=== PATIENT | female | born 1935 | race Caucasian/White ===

== ENCOUNTER → 2016-07-13 | Outpatient (CLI) | payer OTHER | LOC: FIMAGING 13:11 | PROVIDERS: ATTEND Family Medicine | DX: Z13.820 Encounter for screening for osteoporosis (principal); M81.0 Age-related osteoporosis without current pathological fracture; Z78.0 Asymptomatic menopausal state; Z79.890 Hormone replacement therapy ==

== ENCOUNTER → 2017-01-13 | Outpatient (CLI) | payer OTHER | LOC: FIMAGING 13:38 | PROVIDERS: ATTEND Family Medicine | DX: Z12.31 Encounter for screening mammogram for malignant neoplasm of breast (principal) | CPT/HCPCS: G0202 ==

== ENCOUNTER → 2017-08-29 | Outpatient (CLI) | payer OTHER | LOC: FIMAGING 16:27 | PROVIDERS: ATTEND Family Medicine | DX: R05 Cough (principal); R53.83 Other fatigue; R79.81 Abnormal blood-gas level ==

== ENCOUNTER 2017-09-26 18:35 | Observation (INO) | payer OTHER ==
--- NOTE | 2017-09-26 19:14 | EDPHY ---
H & P Time Seen by Provider: 09/26/17 18:51 HPI/ROS: CHIEF COMPLAINT: Fever cough, lethargy HISTORY OF PRESENT ILLNESS: The patient is a 81-year-old female who presents to the emergency department with lethargy and fever. The patient felt well this morning. When she went to her doctor's office at 2:00 p.m. She developed rigors. She also noted that she had a fever. She reports that she has had a cough for the past few days. Patient has had no nausea or vomiting. No abdominal pain. No leg pain or swelling. No dysuria frequency. The patient reports that she had a cough prior to going on vacation on August 29. She took azithromycin in completed the entire course. This is not change or cough. REVIEW OF SYSTEMS: My complete review of systems is negative except as mentioned in the HPI. Past Medical/Surgical History: Includes hypertension, diabetes Smoking Status: Former smoker Physical Exam: Vitals noted GENERAL: Well-appearing, in no acute distress, alert. HEENT: Eyes normal to inspection, normal pharynx, no signs of dehydration. NECK: No thyromegaly, no lymphadenopathy, supple. RESPIRATORY: Clear to auscultation bilaterally, no rales, rhonchi or wheezing. CVS: Regular rate and rhythm, no rubs, murmurs, or gallops. ABDOMEN: Soft, nontender, nondistended, no organomegaly. BACK: Normal to inspection, no CVA tenderness. SKIN: Normal color, no rash, warm, dry. No pallor. EXTREMITIES: No pedal edema, no calf tenderness, no Homans sign or cords, no joint swelling. NEURO/PSYCH: Alert and oriented x3, normal mood and affect, normal motor sensory exam. No obvious cranial nerve deficit. Constitutional: Initial Vital Signs Temperature (C) 37.9 C 09/26/17 18:44 Heart Rate 112 H 09/26/17 18:44 Respiratory Rate 20 09/26/17 18:44 Blood Pressure 120/70 09/26/17 18:44 O2 Sat (%) 84 L 09/26/17 18:44 O2 Delivery Mode Nasal Cannula O2 (L/minute) 3 Allergies/Adverse Reactions: No Known Allergies Allergy (Unverified 03/24/14 15:44) Home Medications: Medication Instructions Recorded Otc Supplements 10/26/09 GLIPIZIDE 03/24/14 Raloxifene HCl 03/24/14 Atorvastatin Calcium 09/26/17 Lisinopril 09/26/17 Prozac 10 MG (*) 09/26/17 Medical Decision Making - Diagnostics Imaging Results: Imaging Impressions Chest X-Ray 09/26/17 19:13 Impression: Negative chest. ED Course/Re-evaluation: In the emergency department I discussed possible etiologies with the patient and family. I answered all her questions. IV was placed. Laboratory studies, EKG, chest x-ray and urine studies were ordered. I reviewed the patient's laboratory studies. White count was elevated 18,000. Lactate was 1.5. Chemistry panel was notable for slightly low sodium 133. Her urine showed 5-10 white cells. Chest x-ray: No acute disease noted. Please refer the dictated report by the radiologist. I reviewed the films personally. I discussed the results with the patient. I answered all her questions. Feel the patient should be further worked up. I discussed this with Dr. Bingham. She was given Rocephin 1 g IV. Plan. Differential Diagnosis: My differential includes but is not limited to bacteremia, sepsis, urinary tract infection, pneumonia, electrolyte abnormality, sugar abnormality - Data Points Laboratory Results: Laboratory Results 09/26/17 19:35 09/26/17 19:35 09/26/17 09/26/17 09/26/17 19:42 19:40 19:35 WBC RBC Hgb Hct MCV MCH MCHC RDW Plt Count MPV Neut % (Auto) Lymph % (Auto) [place] % (Auto) Eos % (Auto) Baso % (Auto) Nucleat RBC Rel Count Absolute Neuts (auto) Absolute Lymphs (auto) Absolute Monos (auto) Absolute Eos (auto) Absolute Basos (auto) Absolute Nucleated RBC Immature Gran % Immature Gran # PT INR APTT VBG Lactic Acid 1.5 mmol/L mmol/L (0.7-2.1) Sodium 133 mEq/L L mEq/L (135-145) Potassium 4.5 mEq/L mEq/L (3.3-5.0) Chloride 100 mEq/L mEq/L (97-110) Carbon Dioxide 22 mEq/l mEq/l (22-31) Anion Gap 11 mEq/L mEq/L (8-16) BUN 22 mg/dL mg/dL (7-23) Creatinine 1.0 mg/dL mg/dL (0.6-1.0) Estimated GFR 53 Glucose 115 mg/dL H mg/dL (70-100) Calcium 10.2 mg/dL mg/dL (8.5-10.4) Total Bilirubin 0.9 mg/dL mg/dL (0.1-1.4) Conjugated Bilirubin 0.4 mg/dL mg/dL (0.0-0.5) Unconjugated Bilirubin 0.5 mg/dL mg/dL (0.0-1.1) AST 50 IU/L H IU/L (14-46) ALT 39 IU/L IU/L (9-52) Alkaline Phosphatase 101 IU/L IU/L (38-126) POC Troponin I 0.00 ng/mL ng/mL (0.00-0.08) Total Protein 7.8 g/dL g/dL (6.3-8.2) Albumin 4.3 g/dL g/dL (3.5-5.0) Lipase 148 IU/L IU/L (23-300) Urine Color Urine Appearance Urine pH Ur Specific [place] Urine Protein Urine Ketones Urine Blood Urine Nitrate Urine Bilirubin Urine Urobilinogen Ur Leukocyte Esterase Urine RBC Urine WBC Ur Epithelial Cells Urine Bacteria Urine Mucus Urine Glucose 09/26/17 09/26/17 09/26/17 19:35 19:35 19:10 WBC 18.56 10^3/uL H 10^3/uL (3.80-9.50) RBC 4.21 10^6/uL 10^6/uL (4.18-5.33) Hgb 13.8 g/dL g/dL (12.6-16.3) Hct 41.2 % % (38.0-47.0) MCV 97.9 fL fL (81.5-99.8) MCH 32.8 pg pg (27.9-34.1) MCHC 33.5 g/dL g/dL (32.4-36.7) RDW 14.3 % % (11.5-15.2) Plt Count 251 10^3/uL 10^3/uL (150-400) MPV 9.4 fL fL (8.7-11.7) Neut % (Auto) 90.8 % H % (39.3-74.2) Lymph % (Auto) 3.6 % L % (15.0-45.0) [place] % (Auto) 4.7 % % (4.5-13.0) Eos % (Auto) 0.1 % L % (0.6-7.6) Baso % (Auto) 0.4 % % (0.3-1.7) Nucleat RBC Rel Count 0.0 % % (0.0-0.2) Absolute Neuts (auto) 16.87 10^3/uL H 10^3/uL (1.70-6.50) Absolute Lymphs (auto) 0.66 10^3/uL L 10^3/uL (1.00-3.00) Absolute Monos (auto) 0.88 10^3/uL H 10^3/uL (0.30-0.80) Absolute Eos (auto) 0.01 10^3/uL L 10^3/uL (0.03-0.40) Absolute Basos (auto) 0.07 10^3/uL 10^3/uL (0.02-0.10) Absolute Nucleated RBC 0.00 10^3/uL 10^3/uL (0-0.01) Immature Gran % 0.4 % % (0.0-1.1) Immature Gran # 0.07 10^3/uL 10^3/uL (0.00-0.10) PT 13.3 SEC SEC (12.0-15.0) INR 0.99 (0.83-1.16) APTT 23.8 SEC SEC (23.0-38.0) VBG Lactic Acid Sodium Potassium Chloride Carbon Dioxide Anion Gap BUN Creatinine Estimated GFR Glucose Calcium Total Bilirubin Conjugated Bilirubin Unconjugated Bilirubin AST ALT Alkaline Phosphatase POC Troponin I Total Protein Albumin Lipase Urine Color KIANNA Urine Appearance HAZY Urine pH 5.0 (5.0-7.5) Ur Specific [place] 1.017 (1.002-1.030) Urine Protein NEGATIVE (NEGATIVE) Urine Ketones NEGATIVE (NEGATIVE) Urine Blood NEGATIVE (NEGATIVE) Urine Nitrate NEGATIVE (NEGATIVE) Urine Bilirubin NEGATIVE (NEGATIVE) Urine Urobilinogen NEGATIVE EU EU (0.2-1.0) Ur Leukocyte Esterase 1+ H (NEGATIVE) Urine RBC 1-3 /hpf /hpf (0-3) Urine WBC 5-10 /hpf H /hpf (0-3) Ur Epithelial Cells TRACE /lpf /lpf (NONE-1+) Urine Bacteria TRACE /hpf H /hpf (NONE SEEN) Urine Mucus TRACE /lpf /lpf (NONE-1+) Urine Glucose NEGATIVE (NEGATIVE) Point of Care Test Results: Chemistry 09/26/17 19:42 POC Troponin I 0.00 ng/mL ng/mL (0.00-0.08) Departure - Departure Disposition: [facility] Inpatient Acute Clinical Impression: Fever Qualifiers: Fever type: unspecified Qualified Code(s): R50.9 - Fever, unspecified UTI (urinary tract infection) Qualifiers: Urinary tract infection type: acute cystitis Hematuria presence: without hematuria Qualified Code(s): N30.00 - Acute cystitis without hematuria Condition: Good Referrals: Madiha Srivastava MD [Primary Care Provider] - As per Instructions
[2017-09-26 19:57] LABS: PLATELET COUNT 251 10^3/uL (150-400)
[2017-09-26 20:04] LABS: INR 0.99 (0.83-1.16)
[2017-09-26 20:32] LABS: PROTIME(PATIENT) 13.3 SEC (12.0-15.0)
[2017-09-26] MEDS ORDERED: ACETAMINOPHEN 325 MG TAB PO PRN (22:46)
[2017-09-26] MEDS ORDERED: ONDANSETRON 4 MG/2 ML VIAL IVP PRN (22:46)
[2017-09-26] MEDS ORDERED: NS 1,000 ML IV SCH (23:00)
[2017-09-27] MEDS ORDERED: D50W 25 GM/50 ML VIAL IVP PRN (08:00)
[2017-09-27 20:47] LABS: PLATELET COUNT 229 10^3/uL (150-400)
--- NOTE | 2017-09-27 22:30 | ASMTCMCOM ---
CM Note CM Note Notes: 09/27/2017 Case Management Note Met pt during rounds this morning. Pt was admitted for fever along with a suspected UTI. Family members include: Avni [phone] Zane [phone] Iris [phone] (daughter in law) Attempted to meet with patient this afternoon, pt was sleeping soundly. Pt is independent in ADL's prior to admission. Case Management d/c poc: to be determined. Case Management to follow. Date Signed: 09/27/2017 03:02 PM Electronically Signed By:Shelby Bowen RN
--- NOTE | 2017-09-27 22:30 | GPROG ---
[f rep st] PROGRESS NOTE DATE OF SERVICE: 09/27/2017 SUBJECTIVE: The patient feels better. She denies fevers overnight. She has had a nagging cough for 2 months, but otherwise denies chest pain, shortness of breath. She has also denied urinary symptom s. OBJECTIVE: VITAL SIGNS: Stable. GENERAL: Patient is awake, alert, and oriented, in no distress. HEENT: Head is atraumatic, normocephalic. Pupils equal, round, and reactive to light. Extraocular m uscles intact. Oropharynx was clear, mucous membranes moist. NECK: Supple. There is no JVD. HEAR T: Regular rate, without murmur. LUNGS: Clear to auscultation bilaterally. ABDOMEN: Soft, nondis tended, nontender. Normoactive bowel tones. There is no CVA tenderness. EXTREMITIES: Without cyano sis, clubbing, or edema. NEUROLOGIC: Grossly nonfocal. LABORATORY DATA: All of her laboratory data were reviewed. I note her white blood cell count was 18 .5 yesterday and 17.4 this morning. ASSESSMENT/PLAN: Sepsis, presumably secondary to urinary tract infection versus a respiratory source . She was afebrile overnight. White blood cell count is trending down, though remains elevated. Wi ll send a respiratory viral panel. Continue ceftriaxone. I recommend the patient remain hospitalize d while we await culture data, and hopefully she will be stable for discharge tomorrow. DISPOSITION: Inpatient status. /[id number]/MODL
[2017-09-28] MEDS: ATORVASTATIN CALCIUM 10 MG TAB PO SCH ×2 (07:23→08:35)
[2017-09-28] MEDS: CALCIUM CARBONATE 500 MG CHEWABLE TAB PO SCH ×2 (07:23→08:36)
[2017-09-28] MEDS: ENOXAPARIN 40 MG/0.4 ML SYR SC SCH ×2 (07:24→08:36)
[2017-09-28] MEDS: CHOLECALCIFEROL VIT D3 2,000 UNITS TAB/CAP PO SCH ×2 (07:24→08:35)
[2017-09-28] MEDS: INSULIN LISPRO 100 UNIT/ML SC SCH ×2 (07:24→08:31)
[2017-09-28] MEDS: PANTOPRAZOLE SODIUM 40 MG TAB PO SCH ×2 (07:25→08:35)
[2017-09-28] MEDS: RALOXIFENE HCL 60 MG TAB PO SCH ×2 (07:25→08:35)
[2017-09-28 08:29] VITALS: BP 122/71
[2017-09-28 10:03] LABS: PLATELET COUNT 210 10^3/uL (150-400)
--- NOTE | 2017-10-03 11:27 | GHP ---
[f rep st] HISTORY AND PHYSICAL DATE OF ADMISSION: 09/26/2017 SOURCE: Patient provides history, appears reliable. EMR was reviewed and [facility]. CHIEF COMPLAINT: Fevers and rigors. HISTORY OF PRESENT ILLNESS: A very pleasant 81-year-old female with a past medical history significa nt for HLD, DM2, osteoporosis, GERD who presents to the emergency department after she was found at h er PCPs office to have a fever of greater than 102 and development of rigors. Patient reports that s he had been feeling well until this afternoon when she suddenly felt a little lethargic, febrile, and started to have shaking chills. She has not had any sweats. She has had an ongoing cough for the l ast several weeks. She did initially develop symptoms sometime early in August and was prescribed a cou rse of antibiotics which she completed. She traveled to [place] for approximately 10 days and has had a consistent cough which is intermittently productive of sputum. She has not had any reported sick contacts. She denies any nausea, vomiting, abdominal pain. No rashes or sores. No rhinorrhea, sore throat. The patient denies any dysuria or hematuria. No headache or changes in vision. REVIEW OF SYSTEMS: Negative except as noted above. ALLERGIES: No known drug allergies. HOME MEDICATIONS: As per EMR, niacin 500 mg p.o. daily, omeprazole 20 mg p.o. daily, calcium carbona te 500 mg p.o. daily, multivitamin 1 tab p.o. daily, lisinopril 5 mg p.o. daily, vitamin D3 2000 unit s daily atorvastatin 10 mg p.o. daily, glipizide XL 5 mg p.o. daily, raloxifene 60 mg p.o. daily. PAST MEDICAL HISTORY: Significant for hyperlipidemia, diabetes type 2, osteoporosis, GERD. PAST SURGICAL HISTORY: Significant for tonsillectomy, adenoidectomy, left cataract extraction with l ens placement. Otherwise, no major surgeries. FAMILY HISTORY: Negative for diabetes, hypertension, CAD. The patient has 2 adult sons who are heal thy. SOCIAL HISTORY: Patient is . She lives alone with her dog. She quit tobacco some time ago. She does not currently smoke, drink, or do drugs. DNR STATUS: Full. PHYSICAL EXAMINATION: VITAL SIGNS: Upon arrival to the emergency department, blood pressure 120/70, heart rate 112, O2 saturation 84% on room air with temperature of 37.9. Currently, blood pressure 1 14/52, heart rate 104, respiratory rate 19, O2 saturation 95% on 2 L by nasal cannula with temperatur e 37.5. GENERAL: No acute distress. Very pleasant adult female, appears slightly younger than stat ed age, is lying quietly in bed asleep. She wakes easily to name and falls asleep intermittently dur ing interview. HEAD: Normocephalic, atraumatic. EYES: Extraocular muscles are intact. Pupils equ al, round, react to light bilaterally and symmetric. Lens reflex appreciated on the left. ENT: Muc ous membranes appear moist. No oropharyngeal erythema or exudates. Dentition intact. No nasal disc harge. NECK: Supple trachea midline. CV: Regular rate and rhythm. Slightly tachycardic. Slightl y distant heart sounds. No murmurs, rubs, or gallops appreciated. RESPIRATORY: Unlabored breathing . Lungs are clear to auscultation bilaterally. No wheezes, rales, or rhonchi appreciated. ABDOMEN: Positive bowel sounds. Soft, nontender to palpation. No rebound, guarding, or masses appreciated. : No suprapubic tenderness to palpation. No CVA tenderness. No Loving catheter in place. MUSCU LOSKELETAL: Generalized strength is intact. Moves all extremities while lying in bed. NEURO: Suzi sly nonfocal. No facial drooping. Moves all extremities as noted above. PSYCH: Thought process, c ontent, and questions are all appropriate. Patient is slightly fatigued, but she is still appropriat cali and interactive. Awake, alert, and oriented x3. LABORATORY STUDIES: WBC is 18.56, H and H is 13.8 and 41.2, MCV 97.9, platelet count 251, neutrophil ia of 90.8, no bands. PT 13.3, INR 0.99, PTT 22.8. Lactic acid 1.5. Sodium is 133, potassium 4.3, chloride 100, CO2 22, anion gap 11, BUN 22, creatinine 1.0, GFR 53, glucose 115, calcium 10.2, total bilirubin 0.9, ALT 39, AST 50, alkaline phosphatase 101. Troponin negative. Total protein 7.8, albu min 4.3, lipase 148. UA specific gravity of 1.017, pH 5.0, [place], hazy urine, 1+ leukocyte esterase, 5-10 WBCs, trace bacteria, otherwise negative. Blood cultures and urine culture pending. Chest x-ray: Image and report were reviewed myself. Shows negative chest. ASSESSMENT AND PLAN: A very pleasant 81-year-old female with a past medical history significant for diabetes mellitus 2, hyperlipidemia, gastroesophageal reflux disease, osteoporosis who presents to [facility] emergency department with several hours of complaints of fevers and rigors. 1. Fever with tachycardia and leukocytosis consistent with a diagnosis for sepsis without end-organ damage. The patient had symptomatic rigors which she has not had since arrival to the emergency depa rtment. Infectious workup had revealed that patient does have some WBCs in her urine, 5-10. Urine c ulture and blood cultures are pending. She has been started on Rocephin empirically and will plan to continue this at this time pending her cultures. Her chest x-ray, despite some symptoms of cough, d oes not show any infiltrates. She patient does note a history of remote UTIs, but she is currently a symptomatic. 2. Urinary tract infection. As noted above with Rocephin. 3. Hypoxia upon arrival. Patient currently saturating well, and she has only had a singular episode of this. Will try to titrate off her oxygen. Continue with an exertional pulse ox in the morning. No history of respiratory issues. 4. Patient appears to have chronic kidney disease stage 3 with a baseline creatinine 1.0 to 1.2. Ap pears close to baseline. CHRONIC MEDICAL ISSUES: 1. Diabetes type 2. Plan to resume patient's glipizide at this time as per formulary as well as her lisinopril for renal protection. 2. Hyperlipidemia. Continue niacin. 3. Gastroesophageal reflux disease. Continue PPI per formulary. 4. Osteoporosis. Continue patient's raloxifene. 5. Hyponatremia likely related to some hypovolemia. The patient's blood pressures have been slightl y variable and low normal. We will plan to give a little bit of gentle IV fluid hydration overnight and plan to repeat a BMP in the morning. 6. Fluid, electrolyte, and nutrition. Intravenous fluids as noted above. ADA diet has been ordered . Electrolyte monitoring and replacement if needed. 7. Prophylaxis. Sequential compression devices and Lovenox. 8. Code status. Full. DISPOSITION: Patient admitted to observation status at this time on medical. Pending urine cultures and patient's symptoms as well as evolution of her leukocytosis, anticipate currently just short hos pital stay less than 2 midnight. /[id number]/MODL
== END 2017-09-28 11:23 | disposition home or self-care (01) ==
LOC: F2W 22:08
PROVIDERS: ADMIT Student in an Organized Health Care Education/Training Program; ATTEND Hospitalist
DX: A41.9 Sepsis, unspecified organism (principal); N30.00 Acute cystitis without hematuria; R05 Cough; I10 Essential (primary) hypertension; E11.9 Type 2 diabetes mellitus without complications; Z87.891 Personal history of nicotine dependence
CPT/HCPCS: 71046; 96365; 99285; J0696; J1650; 84484-PO

== ENCOUNTER 2017-09-29 16:48 | Emergency (ER) | payer OTHER ==
--- NOTE | 2017-09-29 17:13 | EDPHY ---
H & P Time Seen by Provider: 09/29/17 17:12 HPI/ROS: Chief complaint. Chills, fever HPI. 82-year-old female presents emergency department with chills fever and shakes. She was discharged from the hospital yesterday after 2 days in the hospital for urinary tract infection. She has a cough that is nonproductive. No shortness of breath however she is hypoxic. Denies chest pain. Normally does not wear oxygen. She is taking cefpodoxime as an outpatient antibiotic. No urinary symptoms. No abdominal pain. No vomiting. Subjective fever at home. However chills and shakes as well this afternoon. ROS Constitutional. Fever and chills Eyes. no problems with vision ENT. no sore throat, no nasal drainage Cardiovascular. no chest pain Respiratory. Cough, hypoxia but no subjective shortness of breath Abdominal. no abdominal pain, no nausea/vomiting, no diarrhea . no problems urinating MS. no calf pain/swelling, no neck/back pain, no joint pain Skin. no rash Lymph. no swollen glands Neuro. no headache, no dizziness, no difficulty walking or with speech Past Medical/Surgical History: Past medical history includes a recent hospitalization for UTI. Polio as a child, dyslipidemia, GERD, pre diabetes Social History: , nonsmoker, no alcohol Smoking Status: Former smoker Physical Exam: General Appearance: Alert well-developed female mild distress vital signs show temp 37.7 degrees. O2 saturation 88% on room air Eyes: Pupils equal and round no pallor or injection. ENT, Mouth: Mucous membranes are moist. Respiratory: No retractions. Some rales in the left lung base Cardiovascular: Regular rate and rhythm. Gastrointestinal: Abdomen is soft and nontender, no masses, bowel sounds normal. Neurological: Awake and alert, sensory and motor exams grossly normal. Skin: Warm and dry, no rashes. Musculoskeletal: Neck is supple nontender. Extremities symmetrical, full range of motion. Psychiatric: Patient is oriented X 3, there is no agitation. Constitutional: Initial Vital Signs Temperature (C) 37.7 C 09/29/17 16:55 Heart Rate 94 09/29/17 16:55 Respiratory Rate 18 09/29/17 16:55 Blood Pressure 116/64 09/29/17 16:55 O2 Sat (%) 88 L 09/29/17 16:55 O2 Delivery Mode Nasal Cannula O2 (L/minute) 2 Allergies/Adverse Reactions: No Known Allergies Allergy (Verified 09/29/17 16:55) Home Medications: Medication Instructions Recorded Atorvastatin Calcium [Lipitor 20 10 mg PO DAILY 09/26/17 mg (*)] Calcium Carbonate [Tums 500MG (*)] 500 mg PO DAILY 09/26/17 Cholecalciferol Vit D3 [Vitamin D3 2,000 units PO DAILY 09/26/17 (*)] Herbals/Supplements -Info Only 1 ea PO DAILY 09/26/17 Multivitamins [Multivitamin (*)] 1 each PO DAILY 09/26/17 Niacin [Niacin 500 mg (*)] 500 mg PO DAILY 09/26/17 Omeprazole 20 mg PO DAILY 09/26/17 Raloxifene HCl [Evista] 60 mg PO DAILY 09/26/17 Cefpodoxime Proxetil 100 mg PO BID #14 tablet 09/28/17 glipiZIDE XL [Glucotrol Xl 2.5 mg 2.5 mg PO DAILY #30 tab 09/28/17 (*)] Medical Decision Making - Diagnostics Imaging Results: Imaging Impressions Chest X-Ray 09/29/17 17:26 Impression: Suspect interval development of a mild posterior left lower lobe infiltrate. Chest x-ray interpreted by me shows probable left lower lobe infiltrate Procedures: IV normal saline. Septic workup ED Course/Re-evaluation: Re-evaluation at 6:50 p.m.. Patient is stable. Patient and I discussed imaging and lab results. We discussed treatment plan including recommendation for admission. Patient currently is refusing admission. Family is going to have discussion with the patient. We have arranged for home oxygen. The patient and her family are encouraged to return for worsening symptoms. We talked about re-evaluation tomorrow for continuing symptoms. Ideally this will be with her PCP but otherwise in the emergency department. Differential Diagnosis: Fever and chills with now new finding of pneumonia. Patient is on appropriate antibiotic for pneumonia. No evidence for sepsis. She is leaving against medical advice - Data Points Laboratory Results: Laboratory Results 09/29/17 17:52 09/29/17 17:52 09/29/17 09/29/17 09/29/17 17:52 17:52 17:52 WBC 13.67 10^3/uL H 10^3/uL (3.80-9.50) RBC 3.96 10^6/uL L 10^6/uL (4.18-5.33) Hgb 13.3 g/dL g/dL (12.6-16.3) Hct 38.2 % % (38.0-47.0) MCV 96.5 fL fL (81.5-99.8) MCH 33.6 pg pg (27.9-34.1) MCHC 34.8 g/dL g/dL (32.4-36.7) RDW 13.8 % % (11.5-15.2) Plt Count 193 10^3/uL 10^3/uL (150-400) MPV 9.8 fL fL (8.7-11.7) Neut % (Auto) 83.2 % H % (39.3-74.2) Lymph % (Auto) 8.0 % L % (15.0-45.0) [place] % (Auto) 7.5 % % (4.5-13.0) Eos % (Auto) 0.1 % L % (0.6-7.6) Baso % (Auto) 0.6 % % (0.3-1.7) Nucleat RBC Rel Count 0.0 % % (0.0-0.2) Absolute Neuts (auto) 11.39 10^3/uL H 10^3/uL (1.70-6.50) Absolute Lymphs (auto) 1.09 10^3/uL 10^3/uL (1.00-3.00) Absolute Monos (auto) 1.02 10^3/uL H 10^3/uL (0.30-0.80) Absolute Eos (auto) 0.01 10^3/uL L 10^3/uL (0.03-0.40) Absolute Basos (auto) 0.08 10^3/uL 10^3/uL (0.02-0.10) Absolute Nucleated RBC 0.00 10^3/uL 10^3/uL (0-0.01) Immature Gran % 0.6 % % (0.0-1.1) Immature Gran # 0.08 10^3/uL 10^3/uL (0.00-0.10) PT 13.1 SEC SEC (12.0-15.0) INR 0.97 (0.83-1.16) APTT 25.1 SEC SEC (23.0-38.0) VBG Lactic Acid Sodium 133 mEq/L L mEq/L (135-145) Potassium 4.0 mEq/L mEq/L (3.3-5.0) Chloride 98 mEq/L mEq/L (97-110) Carbon Dioxide 23 mEq/l mEq/l (22-31) Anion Gap 12 mEq/L mEq/L (8-16) BUN 21 mg/dL mg/dL (7-23) Creatinine 1.0 mg/dL mg/dL (0.6-1.0) Estimated GFR 53 Glucose 117 mg/dL H mg/dL (70-100) Calcium 9.3 mg/dL mg/dL (8.5-10.4) Total Bilirubin 0.7 mg/dL mg/dL (0.1-1.4) Urine Color Urine Appearance Urine pH Ur Specific [place] Urine Protein Urine Ketones Urine Blood Urine Nitrate Urine Bilirubin Urine Urobilinogen Ur Leukocyte Esterase Urine Glucose 09/29/17 09/29/17 17:52 17:30 WBC RBC Hgb Hct MCV MCH MCHC RDW Plt Count MPV Neut % (Auto) Lymph % (Auto) [place] % (Auto) Eos % (Auto) Baso % (Auto) Nucleat RBC Rel Count Absolute Neuts (auto) Absolute Lymphs (auto) Absolute Monos (auto) Absolute Eos (auto) Absolute Basos (auto) Absolute Nucleated RBC Immature Gran % Immature Gran # PT INR APTT VBG Lactic Acid 1.1 mmol/L D mmol/L (0.7-2.1) Sodium Potassium Chloride Carbon Dioxide Anion Gap BUN Creatinine Estimated GFR Glucose Calcium Total Bilirubin Urine Color KIANNA Urine Appearance HAZY Urine pH 7.0 (5.0-7.5) Ur Specific [place] 1.015 (1.002-1.030) Urine Protein NEGATIVE (NEGATIVE) Urine Ketones NEGATIVE (NEGATIVE) Urine Blood NEGATIVE (NEGATIVE) Urine Nitrate NEGATIVE (NEGATIVE) Urine Bilirubin NEGATIVE (NEGATIVE) Urine Urobilinogen NEGATIVE EU EU (0.2-1.0) Ur Leukocyte Esterase NEGATIVE (NEGATIVE) Urine Glucose NEGATIVE (NEGATIVE) Medications Given: Discontinued Medications Sodium Chloride (Ns) 1,000 mls @ 0 mls/hr IV EDNOW ONE; Wide Open PRN Reason: Protocol Stop: 09/29/17 17:27 Last Admin: 09/29/17 18:00 Dose: 1,000 mls Departure - Departure Disposition: Home, Routine, Self-Care Clinical Impression: Pneumonia Qualifiers: Pneumonia type: due to unspecified organism Lung location: lower lobe of lung Condition: Fair Instructions: Community Acquired Pneumonia (ED) Additional Instructions: Continue regular medications including antibiotics. Wear oxygen 24/7 until re-evaluation by your regular physician. Return for worsening symptoms. Recheck in the next 1-2 days without fail. Referrals: Madiha Srivastava MD [Primary Care Provider] - 1-2 days without fail
[2017-09-29] MEDS ORDERED: NS 1,000 ML IV ONE (17:26)
[2017-09-29 18:08] LABS: PLATELET COUNT 193 10^3/uL (150-400)
[2017-09-29 18:19] LABS: INR 0.97 (0.83-1.16); PROTIME(PATIENT) 13.1 SEC (12.0-15.0)
[2017-09-29 21:40] VITALS: BP 115/71
== END 2017-09-29 21:41 | disposition home or self-care (01) ==
DX: J18.9 Pneumonia, unspecified organism (principal); E86.9 Volume depletion, unspecified; Z87.891 Personal history of nicotine dependence

== ENCOUNTER → 2017-11-10 | Outpatient (CLI) | payer OTHER | LOC: FIMAGING 12:18 | PROVIDERS: ATTEND Family Medicine | DX: J98.4 Other disorders of lung (principal) ==

== ENCOUNTER → 2018-01-10 | Outpatient (CLI) | payer OTHER | LOC: FIMAGING 10:08 | PROVIDERS: ATTEND Internal Medicine Pulmonary Disease | DX: J98.4 Other disorders of lung (principal) ==

== ENCOUNTER → 2018-01-17 | Outpatient (CLI) | payer OTHER | LOC: FIMAGING 13:39 | PROVIDERS: ATTEND Family Medicine | DX: Z12.31 Encounter for screening mammogram for malignant neoplasm of breast (principal) ==

== ENCOUNTER → 2018-02-06 | Outpatient (CLI) | payer OTHER | LOC: FIMAGING 13:42 | PROVIDERS: ATTEND Family Medicine | DX: E04.2 Nontoxic multinodular goiter (principal) ==